=== PATIENT | female | born 1970 | race Caucasian/White ===

== ENCOUNTER 2023-05-06 09:56 | Outpatient (OUT) | payer BC, SELFPAY ==
--- NOTE | 2023-05-06 10:03 | ECG_ITS ---
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
[2023-05-06 10:53] LABS: Basophils Absolute Auto 0.1 10^3/uL (0.0-0.1); Basophils Percent Auto 0.8 % (0.2-2.0); Eosinophils Absolute Auto 0.3 10^3/uL (0.0-0.7); Eosinophils Percent Auto 2.4 % (0.9-7.0); Hematocrit 35.2 % (36.0-48.0); Hemoglobin 11.3 g/dL (12.0-16.0); Immature Granulocytes Abs Auto 0.04 10^3/uL (0.00-0.03); Immature Granulocytes Pct Auto 0.4 % (0.0-0.5); Lymphocytes Absolute Auto 2.2 10^3/uL (1.2-3.8); Lymphocytes Percent Auto 21.5 % (20.5-60.0); Mean Corpuscular HGB Conc 32.1 g/dL (29.9-35.2); Mean Corpuscular Hemoglobin 28.4 pg (26.7-34.0); Mean Corpuscular Volume 88.4 fL (81.0-99.0); Mean Platelet Volume 9.3 fL (9.5-13.5); Monocytes Percent Auto 9.6 % (1.7-12.0); Neutrophils Absolute Auto 6.7 10^3/uL (1.4-6.5); Neutrophils Percent Auto 65.3 % (43.0-75.0); Platelet Count 380 10^3/uL (150-450); Red Blood Count 3.98 10^6/uL (4.20-5.40); Red Cell Distribution Width 15.9 % (11.0-15.0); White Blood Count 10.3 10^3/uL (4.0-11.0)
[2023-05-06 11:09] LABS: Partial Thromboplastin Time 26.5 sec (22.3-36.2); Prothrombin Time 9.7 sec (9.0-11.6)
[2023-05-06 11:10] LABS: INR <0.93
[2023-05-06 11:11] LABS: Alanine Aminotransferase 91 U/L (14-59); Albumin Globulin Ratio 0.7; Albumin Level 3.2 g/dL (3.4-5.0); Alkaline Phosphatase 89 U/L (46-116); Anion Gap 13.7; Aspartate Amino Transferase 51 U/L (15-37); BUN Creatinine Ratio 15.3; Bilirubin Direct 0.1 mg/dL (0.0-0.2); Bilirubin Total 0.3 mg/dL (0.2-1.0); Calcium 8.4 mg/dL (8.5-10.1); Chloride 103 mmol/L (98-107); Estimated GFR (African America >60 (>=60); Estimated GFR (Non-African Ame >60 (>=60); Globulin 4.5 g/dL; Glucose 86 mg/dL (74-106); Potassium 3.7 mmol/L (3.5-5.1); Sodium 138 mmol/L (136-145); Total Protein 7.7 g/dL (6.4-8.2)
== END 2023-05-06 09:57 | disposition home or self-care (01) ==
LOC: PST 09:58
PROVIDERS: PCP Obstetrics & Gynecology; Visit Provider Obstetrics & Gynecology
DX: Z01.812 Encounter for preprocedural laboratory examination (principal); Z01.810 Encounter for preprocedural cardiovascular examination; R10.2 Pelvic and perineal pain; N94.6 Dysmenorrhea, unspecified; N92.0 Excessive and frequent menstruation with regular cycle; N94.10 Unspecified dyspareunia
CPT/HCPCS: 80048; 80076; 85025; 85610; 85730; 93005

== ENCOUNTER 2023-05-21 12:53 | Outpatient (OUT) | payer BC, SELFPAY ==
--- NOTE | 2023-05-21 13:30 | CA_ITS ---
Patient Name: NELSON TIERNEY MR#: [id number] : 1970 Exam Date: 05/21/2023 Ordering Doctor: MRS. YULIET CHRIS NP ECHOCARDIOGRAM REPORT PROCEDURE: CA ECHO DOPPLER COMPLETE INDICATIONS: Pre-operative clearance, abnormal ECG, hypertension COMPARISON: None. DESCRIPTION: COMPLETE ECHOCARDIOGRAM Real-time transthoracic echocardiography with 2D, M-mode, spectral and color flow Doppler performed. QUALITY: Technical quality was good. LEFT VENTRICLE: Normal chamber size. Normal left ventricular wall thickness. LV EF: Global left ventricular systolic function is difficult to assess but appears lower normal limits; visually estimated ejection fraction is 50%. Unable to assess regional wall motion abnormality; suggest contrast study for better delineation of endocardial borders. DIASTOLIC: Normal diastolic function. ATRIAL SEPTUM: Visually appears intact. LEFT ATRIUM: Normal chamber size. RIGHT ATRIUM: Normal chamber size. RIGHT VENTRICLE: Normal chamber size. Normal right ventricular systolic function. TRICUSPID VALVE: Normal mobility and thickness. No stenosis with no regurgitation. Unable to assess right-sided pressures due to lack of measurable tricuspid regurgitation. MITRAL VALVE: Normal mobility and thickness. No evidence of mitral valve stenosis. There is no mitral annular calcification. Trivial mitral regurgitation. AORTIC VALVE: Normal trileaflet appearance. No visible sclerosis. Normal leaflet mobility. No evidence of aortic valve stenosis. No aortic regurgitation. AORTIC ROOT: Normal diameter and appearance. PULMONIC VALVE: Normal thickness and mobility. No stenosis. No regurgitation. PERICARDIUM: No evidence of pericardial effusion. IVC: Collapses with inspirations. CONCLUSION: 1. Global left ventricular systolic function is difficult to assess but appears low normal limits; visually estimated ejection fraction is 50% 2. The right ventricle is normal in size and systolic function 3. Normal diastolic function 4. Valves are poorly seen; no significant valvular abnormalities Adult Echocardiography Procedure Report Left Ventricle LVEDD (3.7 - 5.6 cm): 4.57 cm LVESD (2.2 - 4.0 cm): 3.70 cm LVIVS thickness (0.6 - 1.2 cm): 0.75 cm LVPW thickness (0.5 - 1.0 cm): 0.80 cm e': 0.09 m/s E - e': 5.96 LVOT Max Gradient: 2.40 mm[Hg] LVOT Area (cm2): 0.77 m/s Peak Velocity (LVOT): 0.77 m/s LVOT Diameter 1.88 cm Left Atrium LA Volume Index (2D A2C): 30.06 ml/m2 Left Atrium Systolic Dimension: 3.87 cm Mitral Valve MV E to A Ratio: 0.61 Mitral Valve A-Wave Peak Velocity: 0.86 m/s Mitral Valve E-Wave Peak Velocity: 0.52 m/s Right Ventricle Aorta AO Root Diam: 2.69 cm Aortic Valve AoV Area (Peak Kanu): 2.35 cm2, 2.35 cm2 Peak Velocity(Antegrade Flow): 0.91 m/s Peak Gradient(Antegrade Flow): 3.34 mm[Hg] Tricuspid Valve Pulmonic Valve Peak Velocity: 0.84 m/s Peak Gradient: 2.75 mm[Hg], 2.86 mm[Hg] Right Atrium Right Atrium Systolic Pressure: 38.75 ml, 38.75 ml Dictated by: Richa Olson M.D. on 05/24/2023 at 17:21 Approved by: Richa Olson M.D. on 05/24/2023 at 17:28
== END 2023-05-21 12:54 | disposition home or self-care (01) ==
LOC: CARD 12:53
PROVIDERS: PCP Obstetrics & Gynecology; Visit Provider Nurse Practitioner Acute Care
DX: Z01.818 Encounter for other preprocedural examination (principal); I11.0 Hypertensive heart disease with heart failure
CPT/HCPCS: 93306

== ENCOUNTER 2023-05-28 12:15 | Outpatient (OUT) | payer BC, SELFPAY ==
[2023-05-28 13:20] LABS: Alanine Aminotransferase 90 U/L (14-59); Albumin Globulin Ratio 0.7; Albumin Level 3.5 g/dL (3.4-5.0); Alkaline Phosphatase 98 U/L (46-116); Anion Gap 13.7; Aspartate Amino Transferase 56 U/L (15-37); BUN Creatinine Ratio 11.5; Bilirubin Total 0.3 mg/dL (0.2-1.0); Calcium 8.7 mg/dL (8.5-10.1); Chloride 102 mmol/L (98-107); Chol HDL Ratio 1.4; Cholesterol 143 mg/dL (<=200); Estimated GFR (African America >60 (>=60); Estimated GFR (Non-African Ame >60 (>=60); Globulin 4.8 g/dL; Glucose 89 mg/dL (74-106); HDL Cholesterol 99 mg/dL (40-60); Potassium 3.7 mmol/L (3.5-5.1); Sodium 138 mmol/L (136-145); Total Protein 8.3 g/dL (6.4-8.2); Triglycerides 26 mg/dL (<=150); VLDL CHOLESTEROL 5.2 mg/dL
== END 2023-05-28 12:16 | disposition home or self-care (01) ==
PROVIDERS: PCP Internal Medicine; Visit Provider Internal Medicine
DX: Z00.00 Encounter for general adult medical examination without abnormal findings (principal)
CPT/HCPCS: 36415; 80053; 80061

== ENCOUNTER 2023-06-16 11:44 | Outpatient (OUT) | payer BC, SELFPAY | END 2023-06-16 11:45 | disposition home or self-care (01) | LOC: PST 11:45 | PROVIDERS: PCP Internal Medicine; Visit Provider Obstetrics & Gynecology | DX: Z01.818 Encounter for other preprocedural examination (principal); N92.0 Excessive and frequent menstruation with regular cycle; N94.6 Dysmenorrhea, unspecified; R10.2 Pelvic and perineal pain; N94.10 Unspecified dyspareunia ==

== ENCOUNTER 2023-06-18 13:51 | Outpatient (OUT) | payer BC, SELFPAY | END 2023-06-18 13:52 | disposition home or self-care (01) | LOC: LAB 13:51 | PROVIDERS: PCP Internal Medicine; Visit Provider Obstetrics & Gynecology | DX: Z01.812 Encounter for preprocedural laboratory examination (principal); N92.0 Excessive and frequent menstruation with regular cycle | CPT/HCPCS: 86850; 86900; 86901 ==

== ENCOUNTER 2023-06-22 06:18 | Day surgery (SDC) | payer BC, SELFPAY ==
[2023-05-06 10:31] VITALS: BP 133/83; PULSE 76; RESP 20; TEMP 36.2; O2SAT 95; BMI 37.8
[2023-06-22] VITALS (25 sets, daily range): BP systolic 98–160; BP diastolic 71–95; PULSE 71–101; RESP 14–27; TEMP 36.2–37; O2SAT 92–100; BMI 37.1
[2023-06-22 06:31] LABS: Basophils Absolute Auto 0.1 10^3/uL (0.0-0.1); Basophils Percent Auto 0.6 % (0.2-2.0); Eosinophils Absolute Auto 0.3 10^3/uL (0.0-0.7); Hematocrit 36.3 % (36.0-48.0); Immature Granulocytes Abs Auto 0.02 10^3/uL (0.00-0.03); Immature Granulocytes Pct Auto 0.2 % (0.0-0.5); Lymphocytes Percent Auto 23.1 % (20.5-60.0); Mean Corpuscular HGB Conc 33.1 g/dL (29.9-35.2); Mean Corpuscular Hemoglobin 28.8 pg (26.7-34.0); Mean Corpuscular Volume 87.1 fL (81.0-99.0); Mean Platelet Volume 9.1 fL (9.5-13.5); Monocytes Absolute Auto 0.9 10^3/uL (0.3-0.8); Monocytes Percent Auto 10.1 % (1.7-12.0); Neutrophils Absolute Auto 5.4 10^3/uL (1.4-6.5); Platelet Count 421 10^3/uL (150-450); Red Blood Count 4.17 10^6/uL (4.20-5.40); Red Cell Distribution Width 15.4 % (11.0-15.0); White Blood Count 8.6 10^3/uL (4.0-11.0)
[2023-06-22 06:51] LABS: HCG Quantitative <1 mIU/mL
[2023-06-22] MEDS: LACTATED RINGER'S SOLUTION 1,000 ML 50 ML IV (07:15)
[2023-06-22] MEDS: METRONIDAZOLE/SODIUM CHLORIDE 500 MG/100 ML PREMIX 100 MG IV ×2 (07:35→16:46)
[2023-06-22] MEDS: CIPROFLOXACIN IN 5 % DEXTROSE 400 MG/200 ML PIGGYBACK 200 MG IV ×2 (07:57→12:20)
[2023-06-22] MEDS: LACTATED RINGER'S SOLUTION 1,000 ML 1000 ML IV ×2 (09:09→11:50)
[2023-06-22] MEDS: LACTATED RINGER'S SOLUTION 1,000 ML 125 ML IV ×2 (12:30→20:46)
--- NOTE | 2023-06-22 13:02 | XR_ITS ---
[address] [address] Patient Name: NELSON TIERNEY MRN: [id number] date: 1970 Sex: F Assigned Patient Location: [facility] Current Patient Location: [facility] Accession/Order Number: [id number] Exam Date: 06/22/2023 13:04 Report Date: 06/22/2023 13:50 At the request of: HERMILA PLUNKETT Procedure: XR IVP w KUB EXAMINATION: XR IVP w KUB HISTORY: post op evaluate for urinary leak following hysterectomy COMPARISON: No relevant comparison available. TECHNIQUE: Limited portable technique. 10 minute, 20 minute and post void images were obtained following injection of 50 cc of Omnipaque 300 IV FINDINGS: KIDNEY/URETER - RIGHT: Not visualized KIDNEY/URETER - LEFT: Not visualized PELVIS: No visible ureteral calcifications. Any visible calcifications favor phleboliths. NEPHROGRAPHIC PHASE: Suboptimal visualization. symmetric size, contour, and orientation. Normal and symmetric time of contrast uptake. CORTICOMEDULLARY: Not observed UROGRAPHIC PHASE: Not observed BLADDER: Minimally distended BOWEL: No abnormal dilation or deviation. BONES: No acute abnormality. OTHER: Negative. No abnormal gaseous collections. XR/XR IVP w KUB IMPRESSION: Limited exam. No definite evidence of a urinary leak Electronically authenticated by: JOYCE BARRETT Date: 06/22/2023 13:50
[2023-06-22] MEDS: ONDANSETRON PF 4 MG/2 ML VIAL IV ×3 (13:14→18:45)
--- NOTE | 2023-06-22 13:21 | PC.NURSE ---
PATIENT WAS NAUSEATED ...AT 1314 PATIENT WAS GIVEN ZOFRAN
--- NOTE | 2023-06-22 13:40 | PC.NURSE ---
PATIENT CONTINUES WITH NAUSEA.. ADMINISTERED A 2ND DOSE OF ZOFRAN AT THIS TIME.
[2023-06-22] MEDS: OXYCODONE HCL/ACETAMINOPHEN 5MG/325MG 1 TAB PO (13:51)
--- NOTE | 2023-06-22 14:06 | W.PM.PROCNOT ---
Date of procedure: 06/22/23 Pre-op diagnosis: intra-op consult Post-op diagnosis: other (repair of serosa injury of large bowel ) Procedure: Intra op consult for concerns of possible large bowel serosa tear. Upon entry to room patient was asleep and robot was docked per anesthesia and OBGYN teams respectively. Examined the bowel via the robotic intellectual property counsel and repaired a small less then 1cm serosa defect of the anterior portion of the sigmoid colon with a 3-0 silk in an interrupted fashion. Bowel appeared healthy and viable. No other issues noted of bowel that was exposed. Care returned to OBGYN team. Please refer to the OBGYN op note for complete details of case. Anesthesia: GETA Surgeon: Tino Russ Estimated blood loss (mL): 0 Condition: stable Disposition: other (per OBGYN)
--- NOTE | 2023-06-22 14:27 | PC.NURSE ---
EMPTIED 350 MLS OF URINE FROM [facility] PRIOR TO DISCHARGE TO MED-SURG FLOOR. pATIENT STATES SHE FEELS PRESSURE LIKE SHE HAS TO URINATE BUT CATHETER IF FLOWING . UPON ARRIVAL TO [facility] FLOOR 300 MLS OF URINE ALREADY IN [facility]UR[facility] BAG.
--- NOTE | 2023-06-22 14:31 | PC.NURSE ---
1334 UPDATED dR. Workman THAT THIS PATIENT WAS STILL VERY NAUSEATED AFTER 1314 DOSE OF ZOFRAN AND HE IS AWARE AND STATED IT WAS OK TO GIVE more zofran at [phone]
[2023-06-22] MEDS: SOLIFENACIN SUCCINATE 10 MG TABLET PO (16:47)
--- NOTE | 2023-06-22 17:34 | PC.NURSE ---
Patient continues to complain of pressure and feeling of needing to urinate. Writing RN has repositioned the patient, repositioned the catheter, deflated the catheter balloon and reinflated it. Assisted patient to standing position. Checked bladder with bladder scanner and reading was 11 cc. None of these interventions releaved the patient of any pressure or urgency. Writing RN called physician, physician put in order for vesicare and stated if the vesicare does not work then the catheter can be removed but if patient does not urinate within 4 hours it has to be replaced. Patient was updated on this information and was agreeable to the plan.
[2023-06-22] MEDS: OXYCODONE HCL/ACETAMINOPHEN 5MG/325MG 2 TAB PO (18:00)
--- NOTE | 2023-06-22 19:21 | PC.NURSE ---
Patients bladder pressure increased and patient requested the catheter be removed. Catheter was removed, patient tolerated well. Patient verbalized an understanding that if she does not void within 4 hours the catheter has to be replaced. Patient requested to sit on toilet for now. Display Screen Fabricator told patient to pull cord if she needed help or she could ambulate back to the chair by herself if she wanted. Vianneyruiz denied any further needs att his time.
[2023-06-23] MEDS: OXYCODONE HCL/ACETAMINOPHEN 5MG/325MG 2 TAB PO ×2 (00:25→06:28)
[2023-06-23 04:46] LABS: Basophils Percent Auto 0.2 % (0.2-2.0); Eosinophils Percent Auto 0.1 % (0.9-7.0); Hematocrit 33.1 % (36.0-48.0); Hemoglobin 10.6 g/dL (12.0-16.0); Immature Granulocytes Abs Auto 0.08 10^3/uL (0.00-0.03); Immature Granulocytes Pct Auto 0.5 % (0.0-0.5); Lymphocytes Percent Auto 12.8 % (20.5-60.0); Mean Corpuscular Hemoglobin 28.1 pg (26.7-34.0); Mean Corpuscular Volume 87.8 fL (81.0-99.0); Mean Platelet Volume 9.4 fL (9.5-13.5); Monocytes Absolute Auto 1.4 10^3/uL (0.3-0.8); Monocytes Percent Auto 8.7 % (1.7-12.0); Neutrophils Absolute Auto 12.4 10^3/uL (1.4-6.5); Neutrophils Percent Auto 77.7 % (43.0-75.0); Platelet Count 370 10^3/uL (150-450); Red Blood Count 3.77 10^6/uL (4.20-5.40); Red Cell Distribution Width 15.3 % (11.0-15.0); White Blood Count 15.9 10^3/uL (4.0-11.0)
[2023-06-23 04:49] VITALS: BP 143/77; PULSE 90; RESP 18; TEMP 36.9; O2SAT 96
[2023-06-23] MEDS: LACTATED RINGER'S SOLUTION 1,000 ML 125 ML IV (06:16)
[2023-06-23] MEDS: SOLIFENACIN SUCCINATE 10 MG TABLET PO (09:07)
[2023-06-23] MEDS: ENOXAPARIN SODIUM 40 MG/0.4 ML SYRINGE SUBQ (09:07)
[2023-06-23] MEDS: MAGNESIUM HYDROXIDE 2,400 MG/10 ML ORAL.SUSP 2400 MG PO (09:07)
[2023-06-23] MEDS: SIMETHICONE 80 MG TAB.CHEW PO (09:07)
--- NOTE | 2023-06-30 20:19 | PM.ONB ---
Brief Operative Note Date of procedure: 06/30/23 Pre-op diagnosis: menorrhagia, dysmenorrhea, dyspareunia, pelvic pain Post-op diagnosis: same as pre-op Procedure: NAME OF PROCEDURE: ? Robotic assisted laparoscopic hysterectomy with cystoscopy, bilateral salpingectomy, repair of sigmoid serosal tear by dr hernandez PROCEDURE:? The patient was taken back to the operating room, where she was prepped and draped in the normal sterile fashion after being placed in the dorsal lithotomy position.? Patient?s anesthesia was found to be adequate.? Surgical timeout was performed using two patient identifiers.? SCDs were on and in place.? Two grams of Ancef were given prior to the surgery.? Sterile Rai catheter was inserted.? Standard size VCare was secured to the uterine cervix and the surgeon changed gloves.? Attention then was turned to the patient's abdomen, where a supraumbilical incision was then made.? Two S retractors were used to identify the patient?s fascia.? The fascia was then tented up using Yohan clamps and the patient?s fascia was incised sharply.? Patient?s abdomen was identified and entered bluntly.? The patient had the trocar placed and a pneumoperitoneum was obtained.? Approximately 4 liters of CO2 gas was used.? The camera was then placed through the trocar.? At this time, two robot trocars were placed in the patient?s left and right side, two hand widths from the midline, and this was placed under direct visualization.? The patient?s tube on the right side was tented up and the vessel sealer was then used to come across the mesosalpinx, and this was carried down to the uterine ovarian ligament.? The vessel sealer was carried down serially to the broad ligament, to the area of the bladder flap, which was then created anteriorly, and the uterine arteries were skeletonized and sealed using the vessel sealer.? The colpotomy was made using the monopolar cautery on cut, and this was carried circumferentially, posteriorly to anteriorly, until the uterus was amputated.? The specimen was then removed intact through the vagina, without difficulty.? The vagina was then closed using two running V-Loc in a non-lock fashion.? The robot was undocked.? The abdomen was desufflated.? The skin defects were closed using 4-0 Vicryl.? Please note, the fascia was closed using 0 Vicryl.? Sponge, lap and needle counts were correct x2.? Patient was taken to recovery room in stable condition.? The patient was awakened by Anesthesia first.? Patient tolerated procedure well.??cystoscopy performed, efflux from ureteral orifices after delayed period of time, stent passed through lt ureter without difficulty and removed, ivp performed in pacu, serosal tear of sigmoid colon was noted and repaired by dr rey who will dictate his portion Urinary Catheter Management Urinary Catheter Management Urethral: Cath placed during this visit: no
== END 2023-06-23 11:20 | disposition home or self-care (01) ==
LOC: SURGOUT 06:18 → MS 14:16
PROVIDERS: PCP Internal Medicine; Visit Provider Obstetrics & Gynecology
PROC: (CPT 840; principal; 2023-06-22 07:30)
DX: N92.0 Excessive and frequent menstruation with regular cycle (principal); N94.6 Dysmenorrhea, unspecified; N94.10 Unspecified dyspareunia; R10.2 Pelvic and perineal pain; K91.72 Accidental puncture and laceration of a digestive system organ or structure during other procedure; N88.8 Other specified noninflammatory disorders of cervix uteri; N80.03 Adenomyosis of the uterus; Z87.01 Personal history of pneumonia (recurrent); Z98.51 Tubal ligation status
CPT/HCPCS: 44238; 58571; 36415; 74400; 84702; 85025; 88307; 94667; 94668; 96372; J2704; Q9967

== ENCOUNTER 2024-02-15 19:09 | Outpatient (REF) | payer BC, SELFPAY ==
--- OUTSIDE RECORDS SUMMARY | 2024-02-15 19:12 | XMS_ITS | CCD ---
Author Organization [facility] Care Team Providers Care Cable Repairer Name Role Phone Vicky Hawkins Unavailable CARISSA TOLENTINO Attending Unavailable HERMILA BATRES Attending Unavailable HERMILA BATRES Attending Unavailable SAMI BANKS Attending Unavailable SAMI BANKS Referring Unavailable GLORIA CEJA Attending Unavailable JANETT MACKENZIE Referring Unavailable JANETT MACKENZIE Primary Care Unavailable ABHINAV BALDERAS Referring Unavailable JANETT MACKENZIE Primary Care Unavailable JANETT MACKENZIE Referring Unavailable JANETT MACKENZIE Primary Care Unavailable Allergies Allergy Classification Reported Allergen(s) Allergy Type Date of Onset Reaction(s) Facility (1 source) diphenhydrAMINE Drug Allergy Unknown [facility] Other (4 sources) Morphine; Translations: [MORPHINE] Drug Allergy 06-24-20 17 Unknown [facility] Repository (3 sources) Ibuprofen; Translations: [IBUPROFEN] Drug Allergy 09-13-19 22 [facility] Repository (3 sources) Prochlorperazine; Translations: [PROCHLORPERAZINE] Drug Allergy 06-24-20 17 [facility] Repository (3 sources) AMOXICILLIN-POT CLAVULANATE; Translations: [AMOXICILLIN-POT CLAVULANATE] Propensity to adverse reactions to drug (disorder) 06-24-20 17 [facility] Medications Current Medications Medication Drug Class(es) Dates Sig (Normalized) Sig (Original) amLODIPine (1 source) Dihydropyridine Calcium Channel Sarah Norvasc Active Loratadine (1 source) Claritin Active Sertraline (1 source) Serotonin Reuptake Inhibitor Zol oft Active Completed/Discontinued Medications Medication Drug Class(es) Dates Sig (Normalized) Sig (Original) Toradol 30 mg/ml (1 source) Start: 09-09-2021 Toradol 30 mg/ml Sep, 60 mg Problems Active Problems Problem Classification Problem Date Documented Date Episodic/Chronic Hypertension with complications and secondary hypertension (2 sources) Hypertensive heart disease with heart failure; Translations: [Hypertensive heart disease with heart failure] Onset: 05-17-2023 Chronic Menstrual disorders (2 sources) Dysmenorrhea; Translations: [Dysmenorrhea, unspecified] Onset: 09-09-2021 Resolved: 09-09-2021 Chronic Other screening for suspected conditions (not mental disorders or infectious disease) (3 sources) Abnormal electrocardiogram [ECG] [EKG]; Translations: [Encounter for screening mammogram for malignant neoplasm of breast] Onset: 05-17-2023 Episodic Residual codes; unclassified (1 source) Pain, unspecified; Translations: [Pain, unspecified] Onset: 02-07-2024 Episodic Past or Other Problems Problem Classification Problem Date Documented Da te Episodic/Chronic Other liver diseases (1 source) Abnormal levels of other serum enzymes; Translations: [Abnormal levels of other serum enzymes] Onset: 10-30-2023 Episodic Results Test Name Value Interpretation Reference Range Facil ity MAMM SCREENING BILATERAL W C track greaser 02-04-2024 MAMM SCREENING BILATERAL W CAD MAMM SCREENING BILATERAL W CAD EXAM: MAMM SCREENING BILATERAL W CAD, 02/04/2024 9:52 AM CLINICAL INDICATIONS: Screening, Visit for screening mammogram COMPARISON: 01/09/2022, 01/08/2021, 01/03/2020 TECHNIQUE: Bilateral digital tomosynthesis MLO and CC views of the breasts were obtained, with creation of synthetic 2D views. Computer aided detection was utilized. FINDINGS: There are scattered areas of fibroglandular density. There are no suspicious masses, calcifications, or areas of architectural distortion. IMPRESSION: No mammographic evidence of malignancy. BI-RADS: BI-RADS 1 - Negative Recommendation: Routine screening mammogram in 1 year. Finalized by Aissatou Loera MD on 02/04/2024 2:53 PM 1 b MAMM 1 YR Normal [facility] LIVER PANELon 10-30-2023 Albumin [Mass/Vol] 3.9 g/dL Normal 3.2-5.3 [facility] Comment on above: Performed By: #### LIVR #### [facility] ([id number]) [address], [address] [place] [address] ALP [Catalytic activity/Vol] 80 U/L Normal 39-130 [facility] Comment on above: Performed By: #### LIVR #### [facility] ([id number]) [address], [address] [place] [address] ALT [Catalytic activity/Vol] 82 U/L High 0-31 [facility] Comment on above: Performed By: #### LIVR #### [facility] ([id number]) [address], [address] [place] [address] AST [Catalytic activity/Vol] 61 U/L High 0-41 [facility] Comment on above: Performed By: #### LIVR #### [facility] ([id number]) [address], [address] [place] [address] Bilirubin [Mass/Vol] 0.3 mg/dL Normal 0.3-1.2 [facility] Comment on above: Performed By: #### LIVR #### [facility] ([id number]) [address], [address] [place] [address] Bilirubin.direct [Mass/Vol] 0.1 mg/dL Normal 0.0-0.4 [facility] Comment on above: Performed By: #### LIVR #### [facility] ([id number]) [address], [address] [place] [address] Protein [Mass/Vol] 7.4 g/dL Normal 6.0-8.0 [facility] Comment on above: Performed By: #### LIVR #### [facility] ([id number]) [address] [place] [address] Office Visiton 05-17-2023 Follow-up visit [id number] Nelson Liu 1970 Date Provider Department Center 05/17/2023 CARISSA MCELROY [facility]ARD [facility] Family History Problem Relation Age of Onset No Known Problems Mother No Known Problems Father Family Status - Relation Status Age at Mother Father Level of Service:[id number] [facility] OFFICE/OUTPATIENT ESTABLISHED MOD MDM 30-39 MIN Normal [facility] Vital Signs Date Time Vital Sign Value Performing Clinician Facility 09-09-2021 12:00-0500 Body height 152.4 cm Vicky Muñozault Other [facility] Other 09-09-2021 12:00-0500 Body mass index (BMI) [Ratio] 36.71 kg/m2 Vicky Shruthi Other [facility] Other 09-09-2021 12:00-0500 Body temperature 97.9 [degF] Vicky Shruthi Other [facility] Other 09-09-2021 12:00-0500 Body weight 85.28 kg Vicky Muñozault Other [facility] Other 09-09-2021 12:00-0500 Diastolic blood pressure 90 mm[Hg] Vicky Shruthi Other [facility] Other 09-09-2021 12:00-0500 Respiratory rate 18 /min Vicky Shruthi Other [facility] Other 09-09-2021 12:00-0500 SaO2% (BldA) [Mass fraction] 100 % Vicky Shruthi Other [facility] Other 09-09-2021 12:00-0500 Systolic blood pressure 143 mm[Hg] Vicky Hawkins Other [facility] Other Encounters Encounter Date Encounter Type Care Provider Facility Start: 02-07-2024 ambulatory ARNALDO [facility] Start: 02-04-2024 End: 02-04-2024 ambulatory ABHINAV BALDERAS [facility] Start: 10-30-2023 End: 10-30-2023 ambulatory [facility] Start: 08-12-2023 End: 08-12-2023 ambulatory HERMILA KIARRA Not Available Start: 07-26-2023 End: 07-26-2023 ambulatory HERMILA KIARRA Not Available Start: 06-30-2023 End: 06-30-2023 ambulatory GLORIA CEJA Not Available Start: 05-31-2023 End: 06-01-2023 ambulatory SAMI BANKS Not Available Start: 05-17-2023 ambulatory [facility] Start: 05-17-2023 Encounter for other preprocedural examination [facility] Start: 09-09-2021 End: 09-09-2021 ambulatory Vicky Hawkins Other [facility] Other Start: 09-09-2021 Office outpatient ne w 20 minutes Vicky Hawkins [facility] Payers Date P[facility] Category [id number] 1970 Unknown [id number] 2.16.84 [id number] 1970 Unknown [id number] 2.16.84 [id number] 1970 Unknown [id number] 1970 Unknown [id number] [id number] 1970 Unknown [id number] [id number] .[id number] 1970 Unknown [id number] 2.16.8 [id number] 1970 Unknown [id number] 2.16.8 [id number] 1970 Unknown [id number] 2.16.8 [id number] Social History Date Type Detail Facility Sex Assigned At [facility] Other Progress note 05-17-2023 Note Date & Type Note Facility 05-17-2023 Note New patient here to establish care. Ref from Dr. Batres for surgery clearance and abnormal ECG. She is scheduled on , 05/20/2023 for hysterectomy. PCP has already cleared her, but anesthesiology wants cardiac clearance. She said she had echo in [id number] and was diagnosed with mitral valve prolapse. She denies chest pain and SOB. Gets palpitations intermittently, which she says is from anxiety. Review of Systems Cardiovascular: Positive for palpitations (intermittent). All other systems reviewed and are negative. [facility] Progress note 05-17-2023 Note Date & Type Note Facility 05-17-2023 Note Cardiology Clinic No te Subjective Nelson Liu is a 52 y.o. year old female With past medical history of hypertension who is seen in consultation for preoperative cardiovascular risk stratification for laparoscopic hysterectomy. She was cleared by Dr. Mackenzie, but was recommended cardiology for further evaluation. She has been known to have a known poor R-wave progression since 2017. She was told she had a prolapsed mitral valve since diagnosed by echo, but has not had a repeat echo since then. She was very physically active up until a couple years ago, ran for exercise on a routine basis. She has no known family history of coronary artery disease or SCD. Patient Active Problem List Diagnosis Anxiety Dysmenorrhea Essential hypertension HPV in female Partial small bowel obstruction (CMS/HCC) Ventral incisional hernia Family History Problem Relation Name Age of Onset No Known Problems Mother No Known Problems Father Social History Tobacco Use Smoking status: Never Smokeless tobacco: Never Substance Use Topics Alcohol use: Yes Comment: occasional Review of Systems Cardiovascular: Negative for chest pain, dyspnea on exertion, irregular heartbeat, leg swelling, near-syncope, orthopnea, palpitations, paroxysmal nocturnal dyspnea and syncope. Objective Visit Vitals BP (!) 146/99 (BP Location: Right arm, Patient Position: Sitting) Pulse 94 Ht 1.524 m (5') Wt 87.1 kg (192 lb) SpO2 99% BMI 37.50 kg/m??? Smoking Status Never BSA 1.92 m??? Physical Exam General: Awake, alert, NAD Neck: No elevated JVP. No carotid bruit Pulm: Breath sounds clear to ascultation bilaterally with no wheeze, crackles or rhonchi Cards: Regular rate and rhythm, S1, S2. No S3 or S4 gallop. Murmur: none Extr: Lower extremity edema: None. Skin: warm, dry, well perfused Neuro: A&Ox3, No gross deficits Allergies Allergies Allergen Reactions Ibuprofen GI bleeding Amoxicillin-Pot Clavulanate GI intolerance and Rash Per pt Per pt Morphine Anxiety and Palpitations Pt requests not to be given. Not a true allergy. Pt requests not to be given. Not a true allergy. Prochlorperazine Anxiety and Palpitations Pt requests not to be given. Pt requests not to be given. Medications Current Outpatient Medications: amLODIPine (Norvasc) 5 mg tablet, Take 5 mg by mouth in the morning., Disp: , Rfl: loratadine (Claritin) 10 mg tablet, Take 10 mg by mouth in the morning., Disp: , Rfl: losartan (Cozaar) 50 mg tablet, Take 50 mg by mouth in the morning., Disp: , Rfl: omeprazole (PriLOSEC) [address] capsule, Take 20 mg by mouth if needed. Do not crush or chew., Disp: , Rfl: sertraline (Zoloft) 50 mg tablet, Take 50 mg by mouth in the morning., Disp: , Rfl: Recent Labs 05/06/2023 WBC 10.3, hemoglobin 11.3, hematocrit 35.2, platelets 380 03/23/2022 Sodium 131, potassium 3.5, chloride 101, BUN 9, serum creatinine 0.70.74, estimated GFR >90% Imaging and other tests No results found for this or any previous visit (from the past 4464 hour(s)). Assessment Diagnoses and all orders for this visit: Abnormal ECG Pre-op evaluation - Transthoracic echo (TTE) complete; Future Benign hypertensive heart disease with heart failure (CMS/HCC) - Basic metabolic panel; Future - Transthoracic echo (TTE) complete; Future Abnormal EKG - Transthoracic echo (TTE) complete; Future Plan 1. Abnormal electrocardiogram - I reviewed most recent and prior electrocardiograms which are unchanged showing poor R wave progression. We discussed various etiologies, including possible prior anterior NM versus lead placement in setting of obesity. She is physically active able to do >8METS without chest pain/shortness of breath. However, given EKG findings recommend echocardiogram preoperatively to reevaluate known mitral valve disease as well as wall motion abnormalities in setting of abnormal EKG. If echocardiogram is normal, she is cleared to proceed with recommended laparoscopic hysterectomy with without further cardiac evaluation. 2. History of mitral valve prolapse - Will obtain echocardiogram as noted for surveillance 3. Hypertension -Uncontrolled on losartan 50 mg and amlodipine 5 mg. I recommended increasing her losartan to 100 mg. She will obtain BMP in 1 week for renal function monitoring. 4. Cardiovascular risk stratification -Will follow echo results. Follow up in about 6 months (around 11/15/2023). Carissa Tolentino APRN-DIESEL ENGINE SPECIALIST [facility] Addendum 06/01/2023 Echocardiogram showed low normal EF without notable significant valvular abnormalities, valve was unremarkable. She is cleared to proceed with recommended surgery without further cardiac work-up. [facility] Evaluation note 09-09-2021 Note Date & Type Note Facility 09-09-2021 Evaluation note Encounter Date Diagnosis Assessment Notes Sep, Dysmenorrhea (ICD-10 - N94.6) toradol IM given in office today. Recommend patient ot follow up with tip cementer as already planned. If symptoms worsen then recommend patient to seek emergency treatment [facility] Other History general Narrative - Reported Note Date & Type Note Facility History general Narrative - Reported Type Medical History hypertension Surgical History umbilical hernia Surgical History ablasion Surgical History tubal ligation Surgical History 3 [facility] Other Summary Purpose Family History No Family History Records FoundNo Family History Records FoundNo Family History Records FoundNo Family History Records Found Advance Directives No Advanced Directives Records FoundNo Advanced Directives Records FoundNo Advanced Directives Records FoundNo Advanced Directives Records Found Additional Source Comments REASON FOR VISIT (unrecogniz ed section and content) DYSMENORRHEA, ABDOMINAL PAIN INFORMATION SOURCE (unrecogn ized section and content) DATE CREATED AUTHOR 06/03/2023 [facility] DATE CREATED AUTHOR AUTHOR'S ORGANIZ ATION 08/13/2023 [facility] DATE CREATED AUTHOR AUTHOR'S ORGANIZ ATION 02/05/2024 [facility] DATE CREATED AUTHOR AUTHOR'S ORGANIZ ATION 02/07/2024 [facility] FOR RECORDS PERTAINING TO PATIENTS WHO ARE OR HAVE BEEN ENROLLED IN A CHEMICAL DEPENDENCY/SUBSTANCEABUSE PROGRAM, SOME INFORMATION MAY BE OMITTED. This clinical summary was aggregated from multiple sources. Caution should be exercised in using it in the provision of clinical care. This summary normalizes information from multiple sources, and as a consequence, information in this document may materially change the coding, format and clinical context of patient data. In addition, data may be omitted in some cases. CLINICAL DECISIONS SHOULD BE BASED ON THE PRIMARY CLINICAL RECORDS. [facility] [employer] provides no warranty or guarantee of the accuracy or completeness of information in this document.
== END 2024-02-15 19:10 | disposition home or self-care (01) ==
LOC: LAB 19:09
PROVIDERS: PCP Internal Medicine; Visit Provider Obstetrics & Gynecology
DX: Z01.419 Encounter for gynecological examination (general) (routine) without abnormal findings (principal)
CPT/HCPCS: 87624; 88175